=== PATIENT | male | born 2000 | race Caucasian/White ===

== ENCOUNTER → 2023-10-14 | Outpatient (CLI) | payer OTHER, SELFPAY ==
--- NOTE | 2023-10-14 09:37 | NM_ITS ---
CLINICAL: 23-year-old male with history of right upper quadrant abdominal pain. RADIONUCLIDE HEPATOBILIARY SCINTIGRAPHY COMPARISON: None available FINDINGS: Following the intravenous administration of 5.8 mCi of 99m Tc Mebrofenin, hepatobiliary images reveal: 1. Relatively prompt and homogeneous radiopharmaceutical concentration is noted by a normal sized liver. No parenchymal defects are identified. 2. Gallbladder activity is identified at 15 minutes post radiopharmaceutical administration. 3. Small intestinal tract is not visualized during 60 minutes of pre-CCK sequential imaging. Small bowel activity is identified following the administration of cholecystokinin. 4. Washout of the radiopharmaceutical by the hepatic parenchyma appears qualitatively normal. Cholecystokinin (0.02 ug/kg) was administered intravenously over a 30-minute period. The post CCK gallbladder ejection fraction calculated at 20 minutes following Cholecystokinin administration was noted to be 9.0 % (normal greater than 35%). NM/Hepatobilliary Img w/Pharm Int IMPRESSION: 1. ABNORMAL 99m Tc Mebrofenin hepatobiliary imaging examination with Cholecystokinin. A. A gallbladder ejection fraction calculated to be less than 35% following the administration of Cholecystokinin is consistent with the presence of functional hepatobiliary disease (gallbladder and/or sphincter of Oddi dyskinesia) and/or organic hepatobiliary disease (chronic acalculous cholecystitis and/or cystic duct syndrome) in patients with intermediate to high pretest likelihoods of hepatobiliary illness. (Tomasz Morgan et al, Journal of Nuclear Medicine 32:1695, 1991). Electronically Signed: Gera Garcia DO at 17:58 EDT ,
== END | disposition home or self-care (01) ==
DX: R10.11 Right upper quadrant pain (principal); R17 Unspecified jaundice; R07.9 Chest pain, unspecified
CPT/HCPCS: 78227; A9537; J2805

== ENCOUNTER → 2024-03-06 | Outpatient (CLI) | payer OTHER, SELFPAY ==
--- NOTE | 2024-03-08 16:01 | STRESSREP_ITS ---
Stress Test Report Date: 03/06/2024 Procedure: Exercise tolerance test Indications: Chest pain Consent: Per the patient Procedure: The patient exercised on a Carlos protocol for 10 minutes and 59 seconds achieving a peak heart rate of 200 bpm (102% predicted maximal heart rate) with a peak blood pressure 170/66 mmHg and a peak MET capacity of approximately 13.4 MET's. The baseline ECG demonstrated normal sinus rhythm. The peak exercise ECG demonstrated no significant ischemic changes. [There were no cardiac dysrhythmias pretest, during exercise, or recovery]. The functional capacity was considered normal for age. The patient had no complaint of chest discomfort during exercise or recovery. The examination was discontinued secondary to achieving target heart rate. Impression: 1. Technically adequate (percent predicted maximal heart rate greater than 85%) exercise tolerance test 2. Stress test is negative for exercise-induced chest pain. 3. Stress test test is negative for exercise-induced EKG changes of ischemia. 4. Functional capacity is normal for age This note was generated with 5 examplesation software. It may contain incorrect words, spelling, and punctuation that were not noted in checking the note before signing.
== END | disposition home or self-care (01) ==
LOC: CVS 12:18
PROVIDERS: Referring Provider Internal Medicine Cardiovascular Disease; Visit Provider Internal Medicine Cardiovascular Disease
DX: R07.9 Chest pain, unspecified (principal)
CPT/HCPCS: 93017

== ENCOUNTER → 2024-07-23 | Outpatient (CLI) | payer OTHER, SELFPAY ==
[2024-07-23 12:24] LABS: Absolute Lymphocyte Count 2.17 X10^3/uL (0.83-4.51); Absolute Neutrophil Count 2.8 X10^3/uL (2.0-7.7); Basophil# 0.05 X10^3/uL; Basophil% 0.9 % (0-1); Eosinophil# 0.28 X10^3/uL; Eosinophils% 4.8 % (0-5); Hematocrit 46.6 % (40-54); Hemoglobin 16.1 g/dL (13.0-16.5); Lymphocyte # 2.17 X10^3/ul (0.83-4.51); Lymphocyte % 37.4 % (19-41); Mean Corp Hgb Conc 34.5 g/dL (32-36); Mean Corpuscular Hgb 29.5 pg (27.0-32.0); Mean Corpuscular Volume 85.3 fL (80-94); Mean Platelet Vol. 9.6 fl (6.2-12.0); Monocyte# 0.48 X10^3/uL; Monocyte% 8.3 % (0-10); NRBC Flagged by Analyzer 0 % (0-5); Neutrophil # 2.79 X10^3/uL (2.7-7.7); Neutrophil % 48.1 % (47-70); Platelet Count 227 K/mm3 (150-450); RBC Distribution Width CV 11.8 % (11.6-14.6); RBC Distribution Width SD 36.2 fl (35.1-43.9); Red Blood Count 5.46 M/mm3 (4.6-6.2); White Blood Count 5.8 K/mm3 (4.4-11.0)
[2024-07-23 12:53] LABS: ALB/GLOB Ratio 1.2 RATIO (0.9-2.4); AST(SGOT) 25 U/L (15-37); Alanine Aminotransfer ALT/SGPT 53 U/L (16-61); Albumin, Serum 4.4 g/dL (3.2-5.0); Alkaline Phosphatase 61 U/L (45-117); Anion Gap 1 (5-15); BUN 19 mg/dL (7-18); BUN/Creat Ratio 20.4 RATIO (10-20); Calcium,Total 9.8 mg/dL (8.5-10.1); Chloride 104 mmol/L (98-107); Creatinine, Serum 0.93 mg/dL (0.70-1.30); EST Glomerular Filtration Rate 105 mL/min (>60); Est Glom Filt Rate - Afr Amer 127 mL/min (>60); Globulin 3.7 g/dL (2.2-4.2); Glucose 94 mg/dL (74-106); Protein, Total 8.1 g/dL (6.4-8.2); Sodium Level 136 mmol/L (136-145)
== END | disposition home or self-care (01) ==
LOC: BIMLAB 10:47
PROVIDERS: PCP Internal Medicine; Referring Provider Internal Medicine; Visit Provider Internal Medicine
DX: K20.0 Eosinophilic esophagitis (principal); R07.89 Other chest pain
CPT/HCPCS: 36415; 80053; 85025

== ENCOUNTER → 2024-08-07 | Outpatient (CLI) | payer OTHER, SELFPAY ==
[2024-08-08 17:07] LABS: Immunoglobulin A 253 mg/dL (90-386); t-Transglutaminase IgA <2 U/mL (0-3)
== END | disposition home or self-care (01) ==
PROVIDERS: PCP Internal Medicine; Referring Provider Nurse Practitioner Acute Care; Visit Provider Nurse Practitioner Acute Care
DX: R10.9 Unspecified abdominal pain (principal); R07.89 Other chest pain; R14.0 Abdominal distension (gaseous); K20.0 Eosinophilic esophagitis
CPT/HCPCS: 36415; 82784; 83516

== ENCOUNTER 2024-10-02 13:08 | Day surgery (SDC) | payer OTHER, SELFPAY ==
--- NOTE | 2024-10-01 14:21 | PAT.ANESEVAL ---
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 When Was Last Pacemaker Check QUESTION #4 FULL TEXT: You/Your Family Experience fever (hyperthermia) with Anesthesia Last Oral Intake Last Oral intake: Last Oral Intake NPO since Meds taken in AM with sips of water? 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 - trailer body assembler: PONV - trailer body assembler Female No 10/01/24 12:13 HX of Motion Sickness No 10/01/24 12:13 HX of N/V After Surgery No 10/01/24 12:13 Non-Smoker Yes 10/01/24 12:13 Duration of Surgery greater No 10/01/24 12:13 than 60 minutes Number of Risk Factors 1 10/01/24 12:13 PONV Score Low Risk 10/01/24 12:13 Height & Weight Height & Weight: Anesthesia: Height & Weight Height 5 ft 11 in 08/07/24 08:24 Respiratory Assessment Respiratory Assessment - trailer body assembler: Respiratory Tract Infection Hx - trailer body assembler Hx Respiratory Tract Infection No 10/01/24 12:13 STOP Sleep Apnea STOP Sleep Apnea - trailer body assembler: STOP Sleep Apnea - trailer body assembler Hx Hypertension No 10/01/24 12:13 Hx Sleep Apnea No 10/01/24 12:13 CPAP BIPAP Do you snore loudly (louder No 10/01/24 12:13 than talking or can be heard Do you often feel tired/ No 10/01/24 12:13 fatigued/ sleepy during daytime? Has anyone observed you stop No 10/01/24 12:13 breathing during sleep? STOP Results Negative 10/01/24 12:13 QUESTION #5 FULL TEXT : Do you snore loudly (louder than talking or can be heard through closed doors)? 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 Specify any problems Hx of Preganancy in last 3 N/A 10/01/24 12:13 Months Nurse Filling Out Transfusion NBUCHER 10/01/24 12:13 & Questions: Date: 10/01/24 10/01/24 12:13 Time: 12:14 10/01/24 12:13 Patient unable to answer at this time (ie. confused, unrespo /Reproduction History /Reproductive History - trailer body assembler: /Reproductive Hx- trailer body assembler Hx Now No 10/01/24 12:13 Gestational Age (in weeks): EDC: Hx Hx Para Hx Section SAB No 10/01/24 12:13 PFSH Medical History (Updated 10/01/24 @ 12:17 by Cassi Diehl) Marijuana use Dietary restriction Former smoker Cardiology follow-up encounter History of stress test Heart murmur Abnormal biliary HIDA scan Abdominal pain Chest pain Home Medications ?Medication ?Instructions ?Recorded ?Last Taken ?Type pantoprazole 40 mg tablet,delayed 40 mg PO QDAY EoE #30 tabs 08/07/24 Unknown Rx release Allergy/AdvReac Type Severity Reaction Status Date / Time Seasonal Allergies: Uncoded Allergy Mild sneezing Verified 10/01/24 12:12 morphine AdvReac Other Verified 10/01/24 12:12 Family History Grandmother Hypertension CVA (cerebral vascular accident) Parkinsons disease Grandmother Cancer breast Aunt Cancer breast Grandmother Cancer leukemia Other Gallbladder disease Surgical History History of wisdom tooth extraction History of cholecystectomy Social History household members: family housing: house 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 Smoking Status: Former smoker quit date: 07/18/22 second hand exposure: No alcohol intake: current alcohol intake frequency: a few times a week Alcohol type: beer substance use type: does not use caffeine: No what type of physical activity do you participate in: walking frequency: 1-2 times per week seatbelt use: always do you feel safe at home: Yes Audit: Pertinent Findings Pertinent Findings EKG Perinent findings: February 20, 2024. Normal sinus rhythm. Stress test pertinent findings: March 06, 2024. Patient achieved 13.4 METS. Negative for exercise-induced EKG changes of ischemia. Consult pertinent findings: February 20, 2024. Dr. Shah. 1. Chest pain-chest pain is atypical. Episodic since May 2023. Evaluated in the emergency department in June 09 with negative troponins. Symptoms had improved after his cholecystectomy but have remained. Plan for stress test to rule out ischemia (see above) and GI consult. Recommendation Anesthesia Recommendation Anesthesia recommendation: OPTIMIZED for anesthesia
[2024-10-02] VITALS (7 sets, daily range): BP systolic 113–137; BP diastolic 70–87; PULSE 73–96; RESP 14–18; TEMP 36.5–36.7; O2SAT 95–99; BMI 26.6
--- NOTE | 2024-10-02 13:54 | PCM.PRE.AN2 ---
ASA Classification* ASA Classification ASA Classification: 2 Assessment & Plan Anesthesia* Anesthesia Assessment Anesthesia Assessment: Discussed sedation and/or anesthesia options, risks, benefits, and alternatives with patient/parents/legal guardian/POA. Questions invited. The patient/parents/legal guardian/POA seems to understand and agrees to proceed with anesthesia plan. Reviewed the physical assessment, medical history, allergy history and patient home medications list prior to surgery/procedure/anesthetic and documented any changes. Performed airway and anesthesia risk assessments. Anesthesia Type Anesthesia Type: General History Source History Obtained from:: Patient and Chart Anesthesia Focused Assessment* Temperature: 97.7 F Pulse Rate: 73 Blood Pressure: 137/80 Respiratory Rate: 16 Pulse Ox: 99 Oxygen Delivery Method: Room Air Airway Assessment Mouth opens: >3 cm Mallampati Score: II Teeth Condition: Intact Neck Range of motion (ROM): Full ROM Focused Labs Anesthesia Preop lab: CBC WBC 5.8 K/mm3 (4.4-11.0) 07/23/24 10:47 07/23/24 RBC 5.46 M/mm3 (4.6-6.2) 07/23/24 10:47 07/23/24 Hgb 16.1 g/dL (13.0-16.5) 07/23/24 10:47 07/23/24 Hct 46.6 % (40-54) 07/23/24 10:47 07/23/24 Plt Count 227 K/mm3 (150-450) 07/23/24 10:47 07/23/24 CHEMISTRY Potassium 4.0 mmol/L (3.5-5.1) 07/23/24 10:47 07/23/24 Sodium 136 mmol/L (136-145) 07/23/24 10:47 07/23/24 BUN 19 mg/dL (7-18) H 07/23/24 10:47 07/23/24 Creatinine 0.93 mg/dL (0.70-1.30) 07/23/24 10:47 07/23/24 Glucose 94 mg/dL (74-106) 07/23/24 10:47 07/23/24 COAG Pre-Assessment Diagnosis/Proposed Procedure Planned Operative Procedure(s): EGD Anesthesia History 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 When Was Last Pacemaker Check QUESTION #4 FULL TEXT: You/Your Family Experience fever (hyperthermia) with Anesthesia Last Oral Intake Last Oral intake: Last Oral Intake NPO since 08:00 10/02/24 13:33 Meds taken in AM with sips of Yes 10/02/24 13:33 water? 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 - sales project coordinator Female No 10/01/24 12:13 HX of Motion Sickness No 10/01/24 12:13 HX of N/V After Surgery No 10/01/24 12:13 Non-Smoker Yes 10/01/24 12:13 Duration of Surgery greater No 10/01/24 12:13 than 60 minutes Number of Risk Factors 1 10/01/24 12:13 PONV Score Low Risk 10/01/24 12:13 Height & Weight Height & Weight: Anesthesia: Height & Weight Height 5 ft 11 in 10/02/24 13:33 Weight: 86.5 kg 10/02/24 13:33 Body Mass Index (BMI) 26.6 10/02/24 13:33 Respiratory Assessment Respiratory Assessment - sales project coordinator: Respiratory Tract Infection Hx - sales project coordinator Hx Respiratory Tract Infection No 10/01/24 12:13 STOP Sleep Apnea STOP Sleep Apnea - sales project coordinator: STOP Sleep Apnea - sales project coordinator Hx Hypertension No 10/01/24 12:13 Hx Sleep Apnea No 10/01/24 12:13 CPAP BIPAP Do you snore loudly (louder No 10/01/24 12:13 than talking or can be heard Do you often feel tired/ No 10/01/24 12:13 fatigued/ sleepy during daytime? Has anyone observed you stop No 10/01/24 12:13 breathing during sleep? STOP Results Negative 10/01/24 12:13 QUESTION #5 FULL TEXT : Do you snore loudly (louder than talking or can be heard through closed doors)? 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 Specify any problems Hx of Preganancy in last 3 N/A 10/01/24 12:13 Months Nurse Filling Out Transfusion [facility]BU[facility] 10/01/24 12:13 & Questions: Date: 10/01/24 10/01/24 12:13 Time: 12:14 10/01/24 12:13 Patient unable to answer at this time (ie. confused, unrespo /Reproduction History /Reproductive History - sales project coordinator: /Reproductive Hx- sales project coordinator Hx Now No 10/01/24 12:13 Gestational Age (in weeks): EDC: Hx Hx Para Hx Section SAB No 10/01/24 12:13 PFSH Medical History (Updated 10/01/24 @ 12:17 by Cassi Diehl) Marijuana use Dietary restriction Former smoker Cardiology follow-up encounter History of stress test Heart murmur Abnormal biliary HIDA scan Abdominal pain Chest pain Home Medications ?Medication ?Instructions ?Recorded ?Last Taken ?Type pantoprazole 40 mg tablet,delayed 40 mg PO QDAY EoE #30 tabs 08/07/24 10/02/24 08:00 Rx release Allergy/AdvReac Type Severity Reaction Status Date / Time Seasonal Allergies: Uncoded Allergy Mild sneezing Verified 10/02/24 13:32 morphine AdvReac Other Verified 10/02/24 13:32 Family History Grandmother Hypertension CVA (cerebral vascular accident) Parkinsons disease Grandmother Cancer breast Aunt Cancer breast Grandmother Cancer leukemia Other Gallbladder disease Surgical History History of wisdom tooth extraction History of cholecystectomy Social History household members: family housing: house 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 Smoking Status: Former smoker quit date: 07/18/22 second hand exposure: No alcohol intake: current alcohol intake frequency: a few times a week Alcohol type: beer substance use type: does not use caffeine: No what type of physical activity do you participate in: walking frequency: 1-2 times per week seatbelt use: always do you feel safe at home: Yes Review of Systems (Anesthesia) ROS Narrative System reviewed and no additional complaints, except as documented. Physical Exam Const alert, oriented x3 and average body habitus Resp normal respiratory effort, normal air movement and clear to auscultation bilaterally Cardio regular rate, regular rhythm, no murmurs and diaphoretic
--- NOTE | 2024-10-02 14:15 | EGD_PTH ---
PATIENT: MARY MCGREGOR LOC: EN U#:[id number] AGE/SX: 24/M ROOM: RE10/02/[address]: Dr. Derek Davis DO : 2000 BED: DIS: 10/02/2024 SPEC #: [id number] RECD: 10/03/24 09:22 STATUS: SARAH REQ #: [id number] NELY: 10/02/24 14:[address]: Derek Davis DEPT: SURGICAL PATHOLOGY RECD BY: Umair Tate ENTERED: 10/03/24 09:22 SP TYPE: EGD BIOPSY TERRY DR: Dr. Della Vu MD Tissues: A - Duodenum, NOS B - Gastric mucous membrane C - Esophagus, NOS Procedures: Immunohistochemical Stains Surgery Specimen Level IV HEADER OPERATION: EGD with biopsy PRE-OP DIAGNOSIS: Eosinophilic esophagitis, bloating, abdominal pain TISSUE SUBMITTED: A- Duodenum biopsy, B- Gastric body biopsy, C- Random esophagus biopsy MICROSCOPIC DIAGNOSIS A. Right superior lateral thyroid nodule, cytology and cell block:Atypia of undetermined significanceFollicular cells with nuclear grooves B. Right inferior medial thyroid nodule, cytology and cell block:Atypia of undetermined significanceFollicular cells showing nuclear crowding irregular nuclear contours and nuclear grooves (see comment) COMMENT This specimen will be sent for Afirma testing and the results will be reported separately.Vinita Omalley MD, 10/09/24 MICROSCOPIC DESCRIPTION Slides are reviewed. GROSS DESCRIPTION A. Received in fixative is one container labeled with the patient's name and designated Duodenum biopsy. The specimen consists of one irregular fragment of light humphries soft tissue that measures 0.5 x 0.3 x 0.2 cm. The specimen is totally submitted in one cassette. B. Received in fixative is one container labeled with the patient's name and designated Gastric body biopsy. The specimen consists of two irregular fragments of light humphries soft tissue that in aggregate measure 1 x 0.4 x 0.2 cm. The specimen is totally submitted in one cassette. C. Received in fixative is one container labeled with the patient's name and designated Random esophagus biopsy. The specimen consists of multiple irregular fragments of light humphries soft tissue that in aggregate measure 1 x 0.6 x 0.1 cm. The specimen is totally submitted in one cassette. 10/03/2024 CPT:70131p9 ,01191, TC:5
--- NOTE | 2024-10-02 14:15 | EGD_PTH ---
PATIENT: MARY MCGREGOR LOC: EN U#:[id number] AGE/SX: 24/M ROOM: RE10/02/[address]: Dr. Derek Davis DO : 2000 BED: DIS: 10/02/2024 SPEC #: [id number] RECD: 10/03/24 09:22 STATUS: SARAH REQ #: [id number] NELY: 10/02/24 14:[address]: Derek Davis DEPT: SURGICAL PATHOLOGY RECD BY: Umair Tate ENTERED: 10/03/24 09:22 SP TYPE: EGD BIOPSY TERRY DR: Dr. Della Vu MD Tissues: A - Duodenum, NOS B - Gastric mucous membrane C - Esophagus, NOS Procedures: Immunohistochemical Stains Surgery Specimen Level IV HEADER OPERATION: EGD with biopsy PRE-OP DIAGNOSIS: Eosinophilic esophagitis, bloating, abdominal pain TISSUE SUBMITTED: A- Duodenum biopsy, B- Gastric body biopsy, C- Random esophagus biopsy MICROSCOPIC DIAGNOSIS A. Duodenum, biopsy: Duodenum with no histopathologic abnormalityNo intraepithelial lymphocytes or dysplasia B. Gastric body, biopsy: Oxyntic mucosaNo gastritis or ulcerationsAn immunohistochemical stain with appropriate controls for Helicobacter pylori is performed and the results are negative for organisms. C. Random esophagus, biopsy: Squamous and foveolar epithelium with no histopathologic abnormalityVinita Omalley MD, 10/10/2024 MICROSCOPIC DESCRIPTION Slides are reviewed. These tests were developed and their performance characteristics determined by [facility]. They may not have been cleared or approved by the [place]. Food and Drug Administration. The FDA has determined that such clearance or approval is not necessary. The above immunohistochemical/dualISH markers are ordered and reviewed by the Pathologist. GROSS DESCRIPTION A. Received in fixative is one container labeled with the patient's name and designated Duodenum biopsy. The specimen consists of one irregular fragment of light humphries soft tissue that measures 0.5 x 0.3 x 0.2 cm. The specimen is totally submitted in one cassette. B. Received in fixative is one container labeled with the patient's name and designated Gastric body biopsy. The specimen consists of two irregular fragments of light humphries soft tissue that in aggregate measure 1 x 0.4 x 0.2 cm. The specimen is totally submitted in one cassette. C. Received in fixative is one container labeled with the patient's name and designated Random esophagus biopsy. The specimen consists of multiple irregular fragments of light humphries soft tissue that in aggregate measure 1 x 0.6 x 0.1 cm. The specimen is totally submitted in one cassette. 10/03/2024 CPT:33641h1 ,09726, TC:5
--- NOTE | 2024-10-02 15:24 | PCM.HP.STD ---
HPI - General General Date of Admission: 10/02/24 Date of Service: 10/02/24 Chief Complaint: abdominal pain and diarrhea HPI Narrative 24y/o male presents for consultation with complaints of heartburn, loose stools and left sided abdominal pain. His PMH is significant for psoriasis. EGD performed July 2023 revealed eosinophilic esophagitis pattern (>30/hpf). CCX December 2023 for cholecystitis. CBC and CMP were unremarkable 07/23/2024 except for a mildly elevated T. Bili of 1.2; likely secondary to Gilbert's. He complains of bloating, upper abdominal and chest pain with occasional diarrhea. Prior to CCX he reports his primary complaint was chest pain, which has mildly improved post CCX. He complains of heartburn, worse at HS which is alleviated by Tums. He denies any dysphagia. He does experience nausea without emesis. I recommend repeating EGD at this time to assess EoE EGD 08/17/2023 biopsies revealing eosinophilic esophagitis pattern; however, report does not specify number of eosinophils/hpf CCX 12/22/2023 mild cholecystitis, no stones HIDA 10/14/2023 EF 9% Dysphagia - denies Asthma - in middle school - sports induced Denies any family history of EoE or Autoimmune conditions - denies any family h/o celiac disease - reports a strong family h/o GB disease - reports he was on Famotidine and omeprazole in the past which he reports caused anxiety, bloating and overall worsening of symptoms - loose stools post CCX - diet related - denies any bleeding - denies any weight loss - limits caffeine intake - he is a non-smoker - EtOH 1-2 drinks a week - denies taking any NSAIDS - 1h between dinner and laying [facility] Medical History Marijuana use Dietary restriction Former smoker Cardiology follow-up encounter History of stress test Heart murmur Abnormal biliary HIDA scan Abdominal pain Chest pain Home Medications ?Medication ?Instructions ?Recorded ?Last Taken ?Type pantoprazole 40 mg tablet,delayed 40 mg PO QDAY EoE #30 tabs 08/07/24 10/02/24 08:00 Rx release Allergy/AdvReac Type Severity Reaction Status Date / Time Seasonal Allergies: Uncoded Allergy Mild sneezing Verified 10/02/24 13:32 morphine AdvReac Other Verified 10/02/24 13:32 Family History Grandmother Hypertension CVA (cerebral vascular accident) Parkinsons disease Grandmother Cancer breast Aunt Cancer breast Grandmother Cancer leukemia Other Gallbladder disease Surgical History History of wisdom tooth extraction History of cholecystectomy Social History household members: family housing: house 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 Smoking Status: Former smoker quit date: 07/18/22 second hand exposure: No alcohol intake: current alcohol intake frequency: a few times a week Alcohol type: beer substance use type: does not use caffeine: No what type of physical activity do you participate in: walking frequency: 1-2 times per week seatbelt use: always do you feel safe at home: Yes ROS Constitutional Constitutional: Denies fatigue, fever(s), poor appetite, weight gain or weight loss Gastrointestinal Gastrointestinal: Denies belching, bloating, change in bowel habits, change in stool character, chewing difficulty, coffee ground emesis, constipation, cramping, diarrhea, dyspepsia, dysphagia, early satiety, excessive flatus, fecal incontinence, heartburn, hematemesis, hematochezia, hemorrhoids, loose stools, melena, nausea, odynophagia, rectal bleeding, tenesmus, vomiting or weight changes Vital Signs Vital Signs Vital Signs: 10/02/24 13:33 10/02/24 13:33 10/02/24 13:56 Temperature 97.7 F L 97.7 F L Temperature Source Temporal Pulse Rate 73 73 Respiratory Rate 16 16 Respiratory Pattern Normal Blood Pressure 137/80 H 137/80 H Blood Pressure Mean 99 Blood Pressure Source Monitor Blood Pressure Position Semi-Fowlers Blood Pressure Location Right Arm Pulse Ox 99 99 Oxygen Delivery Method Room Air Room Air Weight Weight: 190 lb 11.198 oz Body Mass Index (BMI) 26.6 Physical Exam Const alert, oriented x3 and average body habitus Resp normal respiratory effort, normal air movement and clear to auscultation bilaterally Cardio regular rate, regular rhythm, no murmurs and diaphoretic Assessment & Plan Assessment/Plan (1) Eosinophilic esophagitis: (2) Bloating: (3) Abdominal pain: QUALIFIERS: Abdominal location: upper abdomen, unspecified Qualified Code(s): R10.10 - Upper abdominal pain, unspecified PLAN: Assessment and Plan Assessment and Plan (1) Eosinophilic esophagitis: Status: Acute (2) Chest pain: Status: Acute Qualifiers: Chest pain type: other chest pain Qualified Code(s): R07.89 - Other chest pain (3) Abdominal pain: Status: Acute Qualifiers: Abdominal location: upper abdomen, unspecified Qualified Code(s): R10.10 - Upper abdominal pain, unspecified (4) Bloating: Status: Acute Orders: Orders t-Transglutaminase IgA Today K20.0 - Eosinophilic esophagitis, R07.89 - Other chest pain, R10.9 - Unspecified abdominal pain, R14.0 - Abdominal distension (gaseous) t-Transglutaminase IgG Today K20.0 - Eosinophilic esophagitis, R07.89 - Other chest pain, R10.9 - Unspecified abdominal pain, R14.0 - Abdominal distension (gaseous) Miscellaneous Lab Procedure Today K20.0 - Eosinophilic esophagitis, R07.89 - Other chest pain, R10.9 - Unspecified abdominal pain, R14.0 - Abdominal distension (gaseous) Immunoglobulin A Today K20.0 - Eosinophilic esophagitis, R07.89 - Other chest pain, R10.9 - Unspecified abdominal pain, R14.0 - Abdominal distension (gaseous) Medications: New pantoprazole take 30 minutes before breakfast every morning 40 mg PO QDAY 30 tabs 3RF EoE Plan 24y/o male presents for consultation with complaints of heartburn, loose stools, left sided abdominal pain and chest pain. His PMH is significant for psoriasis. EGD performed July 2023 revealed eosinophilic esophagitis pattern with >30 eosinophils/hpf. CCX December 2023 for cholecystitis. CBC and CMP were unremarkable 07/23/2024 except for a mildly elevated T. 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 He complains of bloating, upper abdominal and chest pain with occasional diarrhea. Prior to CCX he reports his primary complaint was chest pain, which has mildly improved post CCX. He complains of heartburn; worse at HS which is alleviated with Tums. He denies any dysphagia. He does experience nausea without emesis. He reports occasional loose stools post CCX, but notes this is dietary triggered. Denies any weight loss or bleeding. We have reviewed EoE and he reports starting a GFD 2 weeks ago. I have reviewed with him a 2FED and starting a PPI daily. He will complete labs to rule-out celiac disease and schedule an EGD in 8 weeks. Patient Instructions: Complete labs today 2FED Start pantoprazole 40mg daily EGD in 8 weeks Follow-up in office in 3 months Plan Details Follow Up: 3 Months
--- NOTE | 2024-10-02 15:55 | OP.EGD_ITS ---
Patient Name: Isaiah Conley Procedure Date: 10/02/2024 3:34 PM Date of : 2000 Age: 24 Procedure: Upper GI endoscopy Indications: Epigastric abdominal pain, Heartburn Providers: Derek Davis DO Referring MD: Della Vu Md Medicines: Monitored Anesthesia Care Patient Profile: This is a 24 year old male. Refer to note in patient chart for documentation of history and physical. Patient has symptoms of chronic epigastric abdominal pain and chronic dysphagia. Complications: No immediate complications. Procedure: Pre-Anesthesia Assessment: - Prior to the procedure, a History and Physical was performed, and patient medications and allergies were reviewed. The patient is competent. The risks and benefits of the procedure and the sedation options and risks were discussed with the patient. All questions were answered and informed consent was obtained. Patient identification and proposed procedure were verified by the physician in the pre-procedure area. Mental Status Examination: alert and oriented. Airway Examination: normal oropharyngeal airway and neck mobility. Respiratory Examination: clear to auscultation. CV Examination: normal. Prophylactic Antibiotics: The patient does not require prophylactic antibiotics. Prior Anticoagulants: The patient has taken no anticoagulant or antiplatelet agents except for NSAID medication. ASA Grade Assessment: II - A patient with mild systemic disease. After reviewing the risks and benefits, the patient was deemed in satisfactory condition to undergo the procedure. The anesthesia plan was to use monitored anesthesia care (MAC). Immediately prior to administration of medications, the patient was re-assessed for adequacy to receive sedatives. The heart rate, respiratory rate, oxygen saturations, blood pressure, adequacy of pulmonary ventilation, and response to care were monitored throughout the procedure. The physical status of the patient was re-assessed after the procedure. After obtaining informed consent, the endoscope was passed under direct vision. Throughout the procedure, the patient's blood pressure, pulse, and oxygen saturations were monitored continuously. The Endoscope was introduced through the mouth, and advanced to the second part of duodenum. The upper GI endoscopy was accomplished without difficulty. The patient tolerated the procedure well. Scope In: 3:42:11 PM Scope Out: 3:46:01 PM Total Procedure Duration Time 0 hours 3 minutes 50 seconds Findings: The examined esophagus was normal. Biopsies were obtained from the proximal and distal esophagus with cold forceps for histology of suspected eosinophilic esophagitis. Bilious fluid was found in the stomach. Biopsies were taken with a cold forceps for histology. Verification of patient identification for the specimen was done. Estimated blood loss was minimal. Biopsies were taken with a cold forceps for Helicobacter pylori testing. Verification of patient identification for the specimen was done. Estimated blood loss was minimal. No gross lesions were noted in the second portion of the duodenum. Biopsies were taken with a cold forceps for histology. Verification of patient identification for the specimen was done. Estimated blood loss was minimal. Impression: - Normal esophagus. - Bilious gastric fluid. Biopsied. - No gross lesions in the second portion of the duodenum. Biopsied. - Biopsies were taken with a cold forceps for evaluation of eosinophilic esophagitis. Recommendation: - Discharge patient to home. - Resume previous diet. - Continue present medications. - Await pathology results. Procedure Code(s): --- Professional --- 83751, Esophagogastroduodenoscopy, flexible, transoral; with biopsy, single or multiple CPT copyright 2021 [employer]. All rights reserved. The codes documented in this report are preliminary and upon pipe stem sawyer review may be revised to meet current compliance requirements. Derek Davis DO 10/02/2024 3:54:41 PM This report has been signed electronically. Number of Addenda: 0 Note Initiated On: 10/02/2024 3:34 PM
--- NOTE | 2024-10-02 15:55 | OP.CCLET_ITS ---
10/02/2024 Della Vu Md Re : Upper GI endoscopy procedure for Isaiah Conley Dear Horace This procedure was performed on Wednesday, October 02, 2024. My impressions and recommendations are as follows: Impressions : - Normal esophagus. - Bilious gastric fluid. Biopsied. - No gross lesions in the second portion of the duodenum. Biopsied. - Biopsies were taken with a cold forceps for evaluation of eosinophilic esophagitis. Recommendations : - Discharge patient to home. - Resume previous diet. - Continue present medications. - Await pathology results. My findings are described in the full procedure note, which is enclosed. If I can be of further assistance, please feel free to contact me at . Sincerely, Derek Davis, 10/02/2024 3:54:41 PM This report has been signed electronically.
--- NOTE | 2024-10-02 15:56 | PCM.POST.ANE ---
Anesthesia: Postop Eval I Current Vital Signs Temperature: 97.9 F Pulse Rate: 82 Blood Pressure: 131/73 Respiratory Rate: 16 Pulse Ox: 96 Oxygen Delivery Method: Room Air Assessment Airway patent: Yes Spontaneous unlabored respirations: Yes Mental status: Calm nausea: No Vomiting: No Anesthesia Complication: No Fluid Hydration Crystalloid volume administer (ml): 10 Total IV fluid infused: 10 Progress Note Anesthesia document: Postop Eval 1 completed: Yes
--- NOTE | 2024-10-02 16:24 | POSTOPAN2_ITS ---
Anesthesia Postop Eval I Sum Postop Eval Completion status Anesthesia document: Postop Eval 1 completed: Yes Anesthesia Postop Eval I Summary Anesthesia Postop Eval I Summary: Anesthesia Postop Eval I: Assessment Summary Airway patent Yes 10/02/24 15:57 OIL [email or web address] Spontaneous unlabored Yes 10/02/24 15:57 OIL PIPE [email or web address] respirations Mental status Calm 10/02/24 15:57 OIL PIPE [email or web address] nausea No 10/02/24 15:57 OIL PIPE [email or web address] Vomiting No 10/02/24 15:57 OIL PIPE [email or web address] Anesthesia Postop Eval I: Fluid Summary Crystalloid volume administer 10 10/02/24 15:57 OIL PIPE [email or web address] (ml) Colloids volume administered ( ml) Blood Product volume administered (ml) Total IV fluid infused 10 10/02/24 15:57 OIL PIPE [email or web address] Anesthesia Postop Eval I: Summary Notes Anesthesia Complication No 10/02/24 15:57 OIL PIPE [email or web address] Anesthesia Complication Comment: Post-operative progress note Anesthesia: Postop Eval II Evaluation Mental status: Awake Pain Level: 0 nausea: No Vomiting: No Complications Anesthesia Complication: No
--- NOTE | 2024-10-02 16:24 | PCM.POSTANE2 ---
Anesthesia Postop Eval I Sum Postop Eval Completion status Anesthesia document: Postop Eval 1 completed: Yes Anesthesia Postop Eval I Summary Anesthesia Postop Eval I Summary: Anesthesia Postop Eval I: Assessment Summary Airway patent Yes 10/02/24 15:57 [email or web address] Spontaneous unlabored Yes 10/02/24 15:57 [email or web address] respirations Mental status Calm 10/02/24 15:57 [email or web address] nausea No 10/02/24 15:57 [email or web address] [email or web address] Vomiting No 10/02/24 15:57 [email or web address] Anesthesia Postop Eval I: Fluid Summary Crystalloid volume administer 10 10/02/24 15:57 [email or web address] (ml) Colloids volume administered ( ml) Blood Product volume administered (ml) Total IV fluid infused 10 10/02/24 15:57 [email or web address] Anesthesia Postop Eval I: Summary Notes Anesthesia Complication No 10/02/24 15:57 [email or web address] [email or web address] Anesthesia Complication Comment: Post-operative progress note Anesthesia: Postop Eval II Evaluation Mental status: Awake Pain Level: 0 nausea: No Vomiting: No Complications Anesthesia Complication: No
== END 2024-10-02 16:27 | disposition home or self-care (01) ==
LOC: EN 13:10 → AC 13:13
PROVIDERS: PCP Internal Medicine; Referring Provider Internal Medicine; Visit Provider Internal Medicine Gastroenterology
PROC: 0DJ08ZZ Inspection of Upper Intestinal Tract, Via Natural or Artificial Opening Endoscopic (ICD-10-PCS; CPT 43235; principal; 2024-10-02 14:10)
DX: R07.89 Other chest pain (principal); R14.0 Abdominal distension (gaseous); K20.0 Eosinophilic esophagitis; R19.7 Diarrhea, unspecified; R12 Heartburn; R10.10 Upper abdominal pain, unspecified; Z87.891 Personal history of nicotine dependence
CPT/HCPCS: 43239; 88305; 88342; A4216; J2405

== ENCOUNTER → 2025-06-10 | Outpatient (CLI) | payer OTHER, SELFPAY ==
[2025-06-10 10:45] LABS: Hematocrit 43.8 % (40-54); Hemoglobin 15.3 g/dL (13.0-16.5); Immature Granulocytes Count 0.020 X10^3/uL (0.0-0.0); Mean Corp Hgb Conc 34.9 g/dL (32-36); Mean Corpuscular Volume 87.3 fL (80-94); Mean Platelet Vol. 10.1 fl (6.2-12.0); NRBC Flagged by Analyzer 0 % (0-5); Platelet Count 204 K/mm3 (150-450); RBC Distribution Width CV 11.9 % (11.6-14.6); RBC Distribution Width SD 38.1 fl (35.1-43.9); Red Blood Count 5.02 M/mm3 (4.6-6.2); White Blood Count 5.2 K/mm3 (4.4-11.0)
[2025-06-10 11:36] LABS: AST(SGOT) 21 U/L (<=37); Alanine Aminotransfer ALT/SGPT 21 U/L (<=46); Albumin, Serum 4.6 g/dL (3.5-5.0); Alkaline Phosphatase 65 U/L (40-129); Anion Gap 10 (5-15); BUN 13 mg/dL (4-19); BUN/Creat Ratio 14.3 RATIO (10-20); Calcium,Total 9.5 mg/dL (7.6-11.0); Carbon Dioxide 27.4 mmol/L (21.0-32.0); Chloride 102 mmol/L (98-108); Cholesterol 120 mg/dL (<=200); Globulin 2.8 g/dL (2.2-4.2); Glucose 98 mg/dL (70-99); Low Density Lipoprotein Calc. 61 mg/dL; Potassium 4.0 mmol/L (3.3-5.1); Triglycerides 97 mg/dL; Very Low Density Lipoprotein 19 mg/dL (5-40); cholesterol:hdl ratio screen 2.99
== END | disposition home or self-care (01) ==
PROVIDERS: PCP Internal Medicine; Referring Provider Nurse Practitioner Family; Visit Provider Nurse Practitioner Family
DX: K21.9 Gastro-esophageal reflux disease without esophagitis (principal)
CPT/HCPCS: 36415; 80053; 80061; 85025